=== PATIENT | male | born 1970 | race Caucasian/White ===

== ENCOUNTER 2021-10-11 00:22 | Day surgery (SDC) | payer BC, SELFPAY ==
[2021-09-26 14:19] VITALS: BMI 27.9
--- NOTE | 2021-10-11 07:00 | SUR.PREOP ---
Pt. presents with nausea and states that he has been vomiting since 0 after taking his next round of Suprep. States he called Dr. Avilez and was told to stop taking his prep medication. Continued to have at least 5-6 copious light go stools. Dr. Justice notified and informed of pt. status, that pt. did not finish his prep due to vomiting, has had many liquid light go stools. Instructed to continue with colonoscopy this am. No further orders noted.
[2021-10-11 07:02] LABS: Glucose Point of Care 124 mg/dl (65-105)
[2021-10-11 07:05] VITALS: BP 140/92; PULSE 87; RESP 17; TEMP 36.4; O2SAT 99; BMI 27.3
[2021-10-11] MEDS: LACTATED RINGERS 1,000 ML 150 ML IV CONT (07:11)
[2021-10-11] MEDS: ONDANSETRON INJ 4 MG/2 ML VIAL IV PUSH (07:21)
--- NOTE | 2021-10-11 07:46 | PM.HPGS ---
History of Present Illness History of Present Illness Consent: Risks, benefits, and alternatives have been discussed and questions answered. Patient agrees to proceed with procedure. Chief complaint: neoplasm screening Narrative: Elliot Matos is a 51 year old male here for first screening colonoscopy Review of Systems Constitutional: Constitutional: Denies headache(s) and Denies weakness Eyes: Eyes: Denies blurry vision ENT: Reports Normal hearing present, Denies headache(s) and Denies neck pain Cardiovascular: Cardiovascular: Denies chest pain and Denies dyspnea Respiratory: Respiratory: Denies dyspnea Gastrointestinal: Gastrointestinal: Reports no additional gastrointestinal complaints Genitourinary: Genitourinary: Denies dysuria Musculoskeletal: Musculoskeletal: Denies neck pain Integumentary/Breasts: Skin/Breast: Denies dry skin Neurologic: Reports Normal hearing present, Denies headache(s) and Denies weakness Psychiatric: Psychiatric: Denies anxiety Endocrine: Endocrine: Denies change in body appearance Hematologic/Lymphatic: Hematologic/Lymphatic: Denies easy bleeding Allergic/Immunologic: Allergic/Immunologic: Denies urticaria [facility] Past Medical History Medical History (Updated 09/09/21 @ 08:36 by Maia Colón NP) Addisons disease Diabetes mellitus Hypothyroidism (acquired) Shingles Surgical History Surgical History H/O right knee surgery Family History Family History Mother Family history of diabetes mellitus in first degree relative Hypertension Sibling Family history of diabetes mellitus in first degree relative Father Family history of dementia Social History Social History Social History: Smoking status: Never smoker Second hand tobacco smoke exposure: No Alcohol intake: never Alcohol use details: 3/mo Substance use: never Substance use type: does not use Living arrangements: with family Gender identity (if verbalized by the patient): Male Sexual Orientation (if Verbalized by the Patient): Straight or Heterosexual Spiritual care concerns: No Meds Home Medications and Allergies Home Medications Medication Instructions Recorded Confirmed Type blood sugar diagnostic (OneTouch #100 ea 01/13/20 09/09/21 Rx Ultra Blue Test Strip) lancets 33 gauge (OneTouch Delica #100 ea 01/13/20 09/09/21 Rx Lancets) fluticasone propionate 50 1 spray intranasal Q12H #18.2 mL 08/31/20 10/11/21 Rx mcg/actuation nasal spray,suspension azelastine 137 mcg (0.1 %) nasal 1 spray intranasal Q12H #30 mL 11/22/20 10/11/21 Rx spray aerosol flash glucose scanning reader #2 ea 03/12/21 09/09/21 Rx (FreeStyle Arianna 14 Day [place]) flash glucose sensor (FreeStyle #1 ea 08/04/21 09/09/21 Rx Arianna 14 Day Sensor kit) fludrocortisone 0.1 mg tablet 0.1 mg PO DAILY #90 tabs 08/22/21 10/11/21 Rx levothyroxine 100 mcg tablet 100 mcg PO DAILY #90 tabs 08/22/21 10/11/21 Rx prednisone 5 mg tablet See Rx Instructions .Route 09/09/21 10/11/21 Rx .COMPLEX #60 tabs propranolol 60 mg capsule,24 60 mg PO DAILY #90 caps 09/09/21 09/26/21 Rx hr,extended release rosuvastatin 10 mg tablet See Rx Instructions .Route 09/09/21 09/26/21 Rx .COMPLEX #90 tabs empagliflozin 10 mg tablet 10 mg PO DAILY #90 tabs 09/11/21 10/11/21 Rx (Jardiance) glimepiride 1 mg tablet (Amaryl) 1 mg PO QAM #90 tabs 09/11/21 10/11/21 Rx sodium sul 1.479 gram-potas ch See Rx Instructions PO PER PKG DIR 09/23/21 09/26/21 Rx 0.188 gram-magnes sul 0.225 gram #24 tabs tablet (Sutab) amitriptyline 25 mg tablet 25 mg PO DAILY #90 tabs 09/24/21 10/11/21 Rx Allergies Allergy/AdvReac Type Severity Reaction Status Date / Time tizanidine Allergy Mild Dizziness Verified 10/11/21 07:03 meperidine Allergy Unknow
--- NOTE | 2021-10-11 07:50 | WPDANESEPPF ---
Anes - Initial Pre Proc Eval Procedure: Operation Date: 10/11/21 08:00 Proposed Procedures p Screening Colonoscopy - Juan Rome MD Date/Time: 10/11/21 07:50 Surgeon: Juan Rome MD Pre Op Diagnosis: neoplasm screening Patient Data Age: 51 Gender: M Height: 1.83 m Weight: 91.5 kg Last Vital Signs Temp 97.6 F 10/11/21 07:05 Pulse 87 10/11/21 07:05 Resp 17 10/11/21 07:05 BP 140/92 H 10/11/21 07:05 Pulse Ox 99 10/11/21 07:05 O2 Del Method Room Air 10/11/21 07:05 Allergies Allergy/AdvReac Type Severity Reaction Status Date / Time tizanidine Allergy Mild Dizziness Verified 10/11/21 07:03 meperidine Allergy Unknown Dizziness Verified 10/11/21 07:03 Home Medications Medication Instructions Recorded Confirmed Type blood sugar diagnostic (OneTouch #100 ea 01/13/20 09/09/21 Rx Ultra Blue Test Strip) lancets 33 gauge (OneTouch Delica #100 ea 01/13/20 09/09/21 Rx Lancets) fluticasone propionate 50 1 spray intranasal Q12H #18.2 mL 08/31/20 10/11/21 Rx mcg/actuation nasal spray,suspension azelastine 137 mcg (0.1 %) nasal 1 spray intranasal Q12H #30 mL 11/22/20 10/11/21 Rx spray aerosol flash glucose scanning reader #2 ea 03/12/21 09/09/21 Rx (FreeStyle Arianna 14 Day [place]) flash glucose sensor (FreeStyle #1 ea 08/04/21 09/09/21 Rx Arianna 14 Day Sensor kit) fludrocortisone 0.1 mg tablet 0.1 mg PO DAILY #90 tabs 08/22/21 10/11/21 Rx levothyroxine 100 mcg tablet 100 mcg PO DAILY #90 tabs 08/22/21 10/11/21 Rx prednisone 5 mg tablet See Rx Instructions .Route 09/09/21 10/11/21 Rx .COMPLEX #60 tabs propranolol 60 mg capsule,24 60 mg PO DAILY #90 caps 09/09/21 09/26/21 Rx hr,extended release rosuvastatin 10 mg tablet See Rx Instructions .Route 09/09/21 09/26/21 Rx .COMPLEX #90 tabs empagliflozin 10 mg tablet 10 mg PO DAILY #90 tabs 09/11/21 10/11/21 Rx (Jardiance) glimepiride 1 mg tablet (Amaryl) 1 mg PO QAM #90 tabs 09/11/21 10/11/21 Rx sodium sul 1.479 gram-potas ch See Rx Instructions PO PER PKG DIR 09/23/21 09/26/21 Rx 0.188 gram-magnes sul 0.225 gram #24 tabs tablet (Sutab) amitriptyline 25 mg tablet 25 mg PO DAILY #90 tabs 09/24/21 10/11/21 Rx Laboratory Tests 10/11/21 06:58 POC Capillary Glucose 124 mg/dl H mg/dl (65-105) Patient hx anesthesia problems: none Family hx anesthesia problems: none Results Review: All pre-operative results and documents have been reviewed as part of the pre-operative evaluation. [facility] Past Medical History Medical History (Updated 09/09/21 @ 08:36 by Maia Colón NP) Addisons disease Diabetes mellitus Hypothyroidism (acquired) Shingles Surgical History Surgical History H/O right knee surgery Family History Family History Mother Family history of diabetes mellitus in first degree relative Hypertension Sibling Family history of diabetes mellitus in first degree relative Father Family history of dementia Social History Social History Social History: Smoking status: Never smoker Second hand tobacco smoke exposure: No Alcohol intake: never Alcohol use details: 3/mo Substance use: never Substance use type: does not use Living arrangements: with family Gender identity (if verbalized by the patient): Male Sexual Orientation (if Verbalized by the Patient): Straight or Heterosexual Spiritual care concerns: No Anes - Eval Final PreProcedure Day of Procedure 10/11/21 07:50 Patient weight: normal Heart: regular rate and rhythm Lungs: clear to auscultation Airway: Mallampati scale class II Neurological: alert and oriented Last oral intake: >/= 8 hours ASA classification: III Emergent: no Anesthetic plan: proceed Anesthesia type and monitoring:
[2021-10-11 08:14] VITALS: BP 107/69; PULSE 82; RESP 13; O2SAT 98
[2021-10-11 08:24] VITALS: BP 104/74; PULSE 79; RESP 17; O2SAT 98
[2021-10-11 08:34] VITALS: BP 139/96; PULSE 84; RESP 15; O2SAT 98
== END 2021-10-11 08:43 | disposition home or self-care (01) ==
PROVIDERS: PCP Family Medicine; Visit Provider Internal Medicine Gastroenterology
PROC: 0DJD8ZZ Inspection of Lower Intestinal Tract, Via Natural or Artificial Opening Endoscopic (ICD-10-PCS; CPT 45378; principal; 2021-10-11 08:00)
DX: Z12.11 Encounter for screening for malignant neoplasm of colon (principal); D12.0 Benign neoplasm of cecum; K64.8 Other hemorrhoids; E03.9 Hypothyroidism, unspecified; E11.9 Type 2 diabetes mellitus without complications; E27.1 Primary adrenocortical insufficiency
CPT/HCPCS: 45385; 82948; 88305; J2405; J2704; J7120

== ENCOUNTER 2022-09-10 09:42 | Outpatient (CLI) | payer BC, SELFPAY ==
--- NOTE | ~2022-09-10 | XR_ITS ---
EXAMINATION: XR chest 2V 09/10/2022 10:15 INDICATION: Cough with chest pain PROCEDURE: 2 view chest COMPARISON: 09/17/2014 FINDINGS: The lungs are clear. The cardiomediastinal silhouette is within normal limits. There are no pleural effusions. There is no pneumothorax suspected. There are chronic, likely posttraumatic, changes of the left acromioclavicular joint. IMPRESSION: 1: NO ACUTE CARDIOPULMONARY DISEASE. Reviewed, dictated and finalized at location B.
== END 2022-09-10 09:43 | disposition home or self-care (01) ==
PROVIDERS: PCP Family Medicine; Visit Provider Physician Assistant
DX: R05.9 Cough, unspecified (principal)
CPT/HCPCS: 71046

== ENCOUNTER 2023-03-13 14:48 | Outpatient (CLI) | payer BC, SELFPAY ==
[2023-03-13 15:11] LABS: Basophils Absolute Auto 0.1 K/mm3 (0.0-0.1); Basophils Percent Auto 0.2 % (0.2-1.2); Hematocrit 47.1 % (42.0-52.0); Hemoglobin 15.6 g/dL (14.0-18.0); Immature Granulocyte Absolute 0.19 K/mm3 (0.00-0.031); Immature Granulocyte Percent A 0.9 % (0-0.5); Lymphocytes Absolute Auto 2.36 K/mm3 (0.9-3.2); Lymphocytes Percent Auto 11.2 % (18.3-44.2); Mean Corpuscular HGB Conc 33.1 g/dl (32-36); Mean Corpuscular Hemoglobin 29.7 pg (26-34); Mean Corpuscular Volume 89.7 fl (80-100); Mean Platelet Volume 10.8 fl (7.4-10.4); Monocytes Absolute Auto 1.6 K/mm3 (0.1-0.6); Monocytes Percent Auto 7.4 % (2.6-8.5); Neutrophils Percent Auto 80.3 % (45.5-73.1); Platelet Count Result 307 k/mm3 (150-375); Red Blood Count 5.25 M/mm3 (4.6-6.20); Red Cell Distribution Width 12.9 % (11.5-14.5); White Blood Count 21.1 K/mm3 (4.5-10.0)
[2023-03-13 15:23] LABS: Alanine Aminotransferase 29 U/L (6-50); Albumin Level 5.1 g/dL (3.5-5.1); Alkaline Phosphatase 74 U/L (38-126); Anion Gap 14 mmol/L (8-16); Aspartate Amino Transferase 24 U/L (17-59); Bilirubin,Total 0.6 mg/dL (0.2-1.3); Blood Urea Nitrogen 21 mg/dL (9-20); Calcium 9.7 mg/dL (8.4-10.2); Carbon Dioxide 25 mmol/L (22-30); Chloride 104 mmol/L (98-107); Estimated Glomerular Filt Rate > 60; Glucose 76 mg/dL (65-110); Potassium 4.1 mmol/L (3.4-5.0); Sodium 143 mmol/L (137-145)
[2023-03-13 15:38] LABS: Hemoglobin A1C 7.1 % (<5.7)
[2023-03-13 18:20] LABS: Thyroid Stimulating Hormone Reflex 0.132 uIU/mL (0.465-4.68)
[2023-03-13 19:02] LABS: Free T4 Free Thyroxine Reflex 1.31 ng/dL (0.78-2.19)
[2023-03-13 20:15] LABS: Total Triiodothyronine (T3) 1.36 NG/ML (0.97-1.69)
== END 2023-03-13 14:49 | disposition home or self-care (01) ==
PROVIDERS: PCP Family Medicine; Visit Provider Family Medicine
DX: E03.9 Hypothyroidism, unspecified (principal); E11.9 Type 2 diabetes mellitus without complications; E78.5 Hyperlipidemia, unspecified; E83.52 Hypercalcemia; E27.1 Primary adrenocortical insufficiency; Z96.651 Presence of right artificial knee joint
CPT/HCPCS: 36415; 80053; 83036; 84439; 84443; 84480; 85025

== ENCOUNTER 2023-03-17 10:58 | Outpatient (CLI) | payer BC, SELFPAY ==
[2023-03-17 11:16] LABS: Basophils Absolute Auto 0.1 K/mm3 (0.0-0.1); Basophils Percent Auto 0.5 % (0.2-1.2); Eosinophils Absolute Auto 0.1 K/mm3 (0-0.3); Eosinophils Percent Auto 0.5 % (0-4.4); Hematocrit 51.4 % (42.0-52.0); Hemoglobin 17.8 g/dL (14.0-18.0); Immature Granulocyte Absolute 0.16 K/mm3 (0.00-0.031); Immature Granulocyte Percent A 0.9 % (0-0.5); Lymphocytes Absolute Auto 2.36 K/mm3 (0.9-3.2); Lymphocytes Percent Auto 13.3 % (18.3-44.2); Mean Corpuscular HGB Conc 34.6 g/dl (32-36); Mean Corpuscular Hemoglobin 30.1 pg (26-34); Mean Platelet Volume 10.7 fl (7.4-10.4); Monocytes Absolute Auto 1.2 K/mm3 (0.1-0.6); Monocytes Percent Auto 6.8 % (2.6-8.5); Neutrophils Absolute Auto 13.9 K/mm3 (1.3-6.7); Platelet Count Result 323 k/mm3 (150-375); Red Blood Count 5.91 M/mm3 (4.6-6.20); Red Cell Distribution Width 12.5 % (11.5-14.5); White Blood Count 17.8 K/mm3 (4.5-10.0)
[2023-03-17 16:48] LABS: Alanine Aminotransferase 37 U/L (6-50); Albumin Level 5.1 g/dL (3.5-5.1); Alkaline Phosphatase 86 U/L (38-126); Anion Gap 13 mmol/L (8-16); Aspartate Amino Transferase 23 U/L (17-59); Blood Urea Nitrogen 23 mg/dL (9-20); CRP 0.6 mg/dL (<1.0); Calcium 10.4 mg/dL (8.4-10.2); Carbon Dioxide 27 mmol/L (22-30); Chloride 97 mmol/L (98-107); Estimated Glomerular Filt Rate > 60; Glucose 138 mg/dL (65-110); Sodium 137 mmol/L (137-145)
[2023-03-17 16:55] LABS: Immunoglobulin A 230 mg/dL (70-400); Immunoglobulin M 102 mg/dL (40-230)
[2023-03-17 16:56] LABS: Erythrocyte Sedimentation Rate 5 mm/hr (0-20)
[2023-03-17 16:58] LABS: Immunoglobulin G 1263 mg/dL (700-1600)
== END 2023-03-17 10:59 | disposition home or self-care (01) ==
LOC: ANHLAB 11:00
PROVIDERS: PCP Family Medicine; Visit Provider Internal Medicine Hematology & Oncology
DX: D83.9 Common variable immunodeficiency, unspecified (principal)
CPT/HCPCS: 36415; 80053; 82784; 85025; 85652; 86140; 88184

== ENCOUNTER 2023-04-03 17:23 | Outpatient (CLI) | payer BC, SELFPAY ==
[2023-04-07 14:03] LABS: BCR/abl Prior Result Not Given
[2023-04-07 14:52] LABS: BCR/abl P190 Not Detected; BCR/abl P210 Not Detected
[2023-04-07 14:53] LABS: BCR/abl P190 Chg YES; BCR/abl P210 Chg YES
== END 2023-04-03 17:24 | disposition home or self-care (01) ==
LOC: ANHLAB 17:26
PROVIDERS: PCP Family Medicine; Visit Provider Internal Medicine Hematology & Oncology
DX: D72.829 Elevated white blood cell count, unspecified (principal)
CPT/HCPCS: 36415; 81206; 81207

== ENCOUNTER 2023-04-14 12:31 | Outpatient (CLI) | payer BC, SELFPAY ==
--- NOTE | ~2023-04-14 | CT_ITS ---
EXAMINATION: CT chest abdomen pelvis w con DATE: 04/14/2023 13:04 INDICATION: Non-Hodgkin lymphoma TECHNIQUE: Transaxial computed tomographic images of the chest, abdomen, and pelvis were obtained aft er the administration of 100 cc of Omnipaque 350 intravenous contrast. The dose-length product (DLP) was 830.10 mGy-cm. Automated exposure control and iterative reconstruction technique were employed. COMPARISON: 08/21/2014 FINDINGS: CHEST CT: There is mild atelectasis of the lungs. No pleural effusion or pneumothorax. No pathologically enlarg ed thoracic lymph nodes are identified. The heart size is normal. Mild bilateral gynecomastia is note d. There is mild thoracic spondylosis. ABDOMEN/PELVIS CT: There is a small sliding hiatal hernia. Cysts of the liver measure up to 2.1 cm in the right hepatic lobe. The spleen, pancreas, gallbladder, and adrenal glands are normal. Cysts of the kidneys measure up to 6.6 cm on the right. No pathologically enlarged abdominal or pelvic lymph nodes are identified. No free intraperitoneal gas or evidence of bowel obstruction. The appendix is normal. There is sever e lumbar spondylosis at L5-S1. IMPRESSION: 1. No lymphadenopathy of the chest, abdomen, or pelvis. Reviewed, dictated and finalized at location L. K COUNTER
== END 2023-04-14 12:32 | disposition home or self-care (01) ==
PROVIDERS: PCP Family Medicine; Visit Provider Internal Medicine Hematology & Oncology
DX: C85.90 Non-Hodgkin lymphoma, unspecified, unspecified site (principal)
CPT/HCPCS: 71260; 74177; Q9967

== ENCOUNTER 2023-04-29 01:13 | Day surgery (SDC) | payer BC, SELFPAY ==
[2023-04-28 13:45] VITALS: BMI 26.7
--- NOTE | ~2023-04-29 | BM_ITS ---
EXAMINATION: CCL bone marrow asp w bx diag ORDER COMPLETED DATE: 04/29/2023 11:19 INDICATION: Leukocytosis TECHNIQUE: A time-out was performed to verify the patient's name, date of , and procedure to b e performed. The procedure including the risks, benefits, and alternatives was discussed with the pat ient. Risks discussed included bleeding and infection. The patient understood the risks and agreed to proceed. The skin overlying the right posterior iliac spine was prepped and draped in usual sterile fashion. Anesthetic was administered with 1% lidocaine subcutaneously. Systemic analgesia was provide d with 50 mcg fentanyl IV. An 11 gauge needle was inserted into the ilium with fluoroscopic guidance. Bone marrow was aspirated. An 8 gauge needle was then inserted into the ilium with fluoroscopic guid ance. A core bone marrow biopsy was obtained. There were no immediate complications. Fluoroscopy expo sure time was 0.1 minutes. The total number of images was 23. FINDINGS: Real-time fluoroscopy demonstrates a marker overlying the right posterior iliac spine. IMPRESSION: 1. Successful fluoro-guided bone marrow aspiration. 2. Successful fluoro-guided bone marrow core biopsy. Reviewed, dictated and finalized at location A. [facility]
[2023-04-29 07:38] VITALS: BP 133/79; PULSE 73; RESP 16; TEMP 36.3; O2SAT 96; BMI 27.2
[2023-04-29 07:54] LABS: Basophils Absolute Auto 0.1 K/mm3 (0.0-0.1); Basophils Percent Auto 0.5 % (0.2-1.2); Eosinophils Absolute Auto 0.3 K/mm3 (0-0.3); Eosinophils Percent Auto 2.5 % (0-4.4); Hematocrit 48.8 % (42.0-52.0); Hemoglobin 16.4 g/dL (14.0-18.0); Immature Granulocyte Absolute 0.04 K/mm3 (0.00-0.031); Immature Granulocyte Percent A 0.4 % (0-0.5); Lymphocytes Absolute Auto 2.71 K/mm3 (0.9-3.2); Lymphocytes Percent Auto 27.5 % (18.3-44.2); Mean Corpuscular HGB Conc 33.6 g/dl (32-36); Mean Corpuscular Hemoglobin 29.9 pg (26-34); Mean Corpuscular Volume 89.1 fl (80-100); Mean Platelet Volume 11.5 fl (7.4-10.4); Monocytes Percent Auto 9.7 % (2.6-8.5); Neutrophils Absolute Auto 5.9 K/mm3 (1.3-6.7); Neutrophils Percent Auto 59.4 % (45.5-73.1); Platelet Count Result 255 k/mm3 (150-375); Red Blood Count 5.48 M/mm3 (4.6-6.20); Red Cell Distribution Width 12.7 % (11.5-14.5); White Blood Count 9.9 K/mm3 (4.5-10.0)
[2023-04-29 08:05] LABS: INR 0.9; Prothrombin Time 12.7 Seconds (11.1-14.7)
--- NOTE | 2023-04-29 08:55 | WPDMODSED ---
Moderate Sedation Note-Pt Data Patient Data Diagnosis: leukocytosis Present Complaint: leukocytosis, fevers Procedure to be performed/Plan: bone marrow biopsy Allergies Allergy/AdvReac Type Severity Reaction Status Date / Time metformin [From ] AdvReac Intermediate Diarrhea Verified 04/29/23 07:37 sitagliptin [From ] AdvReac Intermediate Diarrhea Verified 04/29/23 07:37 tizanidine AdvReac Mild Dizziness Verified 04/29/23 07:37 meperidine AdvReac Unknown Dizziness Verified 04/29/23 07:37 Home Medications Medication Instructions Recorded Confirmed Type lancets 33 gauge (OneTouch Delica #100 ea 01/13/20 03/13/23 Rx Lancets) pen needle, diabetic 32 gauge x #100 ea 04/07/22 03/13/23 Rx 1/6 (NovoFine Plus) albuterol sulfate 90 mcg/actuation 1 inh inhalation Q4H PRN shortness 08/14/22 04/28/23 Rx aerosol inhaler of breath or wheezing #6.7 grams blood sugar diagnostic #100 ea 11/10/22 03/13/23 Rx insulin degludec 200 unit/mL (3 16 unit (0.08 mL) subcut DAILY #9 03/13/23 04/28/23 Rx mL) subcutaneous pen (Tresiba mL FlexTouch U-200 insulin) flash glucose sensor (FreeStyle #2 kits 03/15/23 03/15/23 Rx Arianna 14 Day Sensor kit) cholecalciferol (vitamin D3) 50 50 mcg PO DAILY #90 caps 04/26/23 04/28/23 Rx mcg (2,000 unit) capsule amitriptyline 25 mg tablet 25 mg PO DAILY 04/28/23 04/28/23 History empagliflozin 10 mg tablet 10 mg PO DAILY 04/28/23 04/28/23 History (Jardiance) fludrocortisone 0.1 mg tablet 0.1 mg PO DAILY 04/28/23 04/28/23 History glimepiride 2 mg tablet 2 mg PO QAM #90 tabs 04/28/23 Rx levothyroxine 100 mcg tablet 100 mcg PO DAILY 04/28/23 04/28/23 History prednisone 5 mg tablet 5 mg PO DAILY 04/28/23 04/28/23 History propranolol 60 mg capsule,24 60 mg PO DAILY 04/28/23 04/28/23 History hr,extended release rosuvastatin 10 mg tablet 10 mg PO DAILY 04/28/23 04/28/23 History Sedation/Anesthesia: No previous sedation/anesthesia problems (including family history). [facility] Past Medical History Medical History Acute bronchitis Acute maxillary sinusitis Acute otitis externa Acute sinusitis Addisons disease AOM (acute otitis media) Diabetes mellitus Diabetes mellitus due to therapeutic use of corticosteroid Dysfunction of both eustachian tubes Heat exhaustion Hypothyroidism (acquired) Hypothyroidism, unspecified Insomnia Migraine NEC/not intrcbl Mixed hyperlipidemia Primary adrenocortical insufficiency Shingles Varicella zoster Surgical History Surgical History H/O right knee surgery Family History Family History Mother Family history of diabetes mellitus in first degree relative Hypertension Sibling Family history of diabetes mellitus in first degree relative Father Family history of dementia Social History Social History (Updated 03/13/23 @ 13:52 by Maia Ellis) Social History: Smoking status: Never smoker Second hand tobacco smoke exposure: No Alcohol intake: never Substance use: never Substance use type: does not use Lack of Transportation: No Lack of Food: Never True Current Housing: I Have Housing Concerned About Future Housing: No Difficulty Paying Gas/Electric Bills: No Difficulty Paying for Meds: No Currently Unemployed: No Education: Decline to Answer Difficulty w/ Childcare or Family Care: No Living arrangements: with family Occupation/Education: occupation 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
[2023-04-29 09:30] VITALS: BP 134/84; PULSE 66; RESP 13; O2SAT 95
[2023-04-29 09:45] VITALS: BP 123/79; PULSE 65; RESP 12; O2SAT 94
[2023-04-29 10:00] VITALS: BP 119/75; PULSE 66; RESP 14; O2SAT 93
[2023-04-29 10:15] VITALS: BP 119/79; PULSE 68; RESP 15; O2SAT 92
== END 2023-04-29 10:25 | disposition home or self-care (01) ==
PROVIDERS: PCP Family Medicine; Referring Provider Internal Medicine Hematology & Oncology; Visit Provider Radiology Diagnostic Radiology
DX: D72.829 Elevated white blood cell count, unspecified (principal); E78.2 Mixed hyperlipidemia; E03.9 Hypothyroidism, unspecified; E11.9 Type 2 diabetes mellitus without complications; G47.00 Insomnia, unspecified; E27.1 Primary adrenocortical insufficiency; Z79.51 Long term (current) use of inhaled steroids; Z79.4 Long term (current) use of insulin; Z79.84 Long term (current) use of oral hypoglycemic drugs; Z79.85 Long-term (current) use of injectable non-insulin antidiabetic drugs
CPT/HCPCS: 36415; 38222; 85025; 85610; 88184; 88185; 88305; 88311; 88313; J1642; J2250; J3010; J7040

== ENCOUNTER 2024-12-04 08:15 | Emergency (ER) | payer BC, SELFPAY ==
--- NOTE | 2024-12-04 08:19 | ED_ITS ---
HPI - General Adult General Chief complaint: Upper Respiratory Infection Stated complaint: Sinus Time Seen by Provider: 12/04/24 08:19 Source: patient Mode of arrival: ambulatory Limitations: no limitations History of Present Illness HPI narrative: 54-year-old male patient presents to the [facility] with complaints of sinus pressure for the past 2 days. Patient denies any fevers body aches or chills. Denies any cough or sore throat. Patient states he takes Zyrtec daily and since symptoms started he has has been taking the Sudafed and a nasal saline spray. Patient states he has been taking ibuprofen and Tylenol at times for pain. Patient states he does have history of [place]'s disease and does get sinus infections often. Related Data Home Medications ?Medication ?Instructions ?Recorded ?Confirmed ?Last Taken ?Type empagliflozin 10 mg tablet 10 mg PO DAILY 04/28/23 07/15/24 04/28/23 History (Jardiance) levothyroxine 100 mcg tablet 100 mcg PO DAILY 04/28/23 07/15/24 04/29/23 History fludrocortisone 0.1 mg tablet 0.1 mg PO BID 07/15/24 07/15/24 Unknown History glimepiride 2 mg tablet 2 mg PO BID 07/15/24 07/15/24 Unknown History hydrocortisone 10 mg tablet See Rx Instructions PO BID 07/15/24 07/15/24 Unknown History rosuvastatin 10 mg tablet 10 mg PO DAILY 07/15/24 07/15/24 Unknown History Allergies Allergy/AdvReac Type Severity Reaction Status Date / Time lisinopril AdvReac Severe Dizziness Verified 12/04/24 08:29 metformin (From [place]) AdvReac Intermediate Diarrhea Verified 12/04/24 08:29 sitagliptin (From [place]) AdvReac Intermediate Diarrhea Verified 12/04/24 08:29 meperidine AdvReac Mild Dizziness Verified 12/04/24 08:29 tizanidine AdvReac Mild Dizziness Verified 12/04/24 08:29 Review of Systems Review of Systems: CONSTITUTIONAL: Denies fever, chills, or sweats. EYES: Denies visual changes, redness, or discharge. ENT: Denies rhinorrhea, positive congestion, denies sore throat, or otalgia. Positive sinus pressure CARDIOVASCULAR: Denies chest pain, palpitations, or edema. RESPIRATORY: Denies cough or dyspnea. GASTROINTESTINAL: Denies abdominal pain, nausea, vomiting, or diarrhea. GENITOURINARY: Denies dysuria or hematuria. SKIN: Denies rash or itching. MUSCULOSKELETAL: Denies back pain, joint pain, or myalgia. NEUROLOGIC: Denies headache, numbness, or weakness. PSYCHIATRIC: Denies anxiety or depression. 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 Acute maxillary sinusitis Acute bronchitis Acute otitis externa AOM (acute otitis media) Acute sinusitis Hypothyroidism (acquired) Shingles Diabetes mellitus Addisons disease Surgical History Surgical History H/O right knee surgery Family History Family History Mother Family history of diabetes mellitus in first degree relative Hypertension Sibling Family history of diabetes mellitus in first degree relative Father Family history of dementia Social History Social History Social History: Smoking status: Never smoker Second hand tobacco smoke exposure: No Alcohol intake: never Substance use: never Substance use type: does not use Lack of Transportation: No Lack of Food: Never True Current Housing: I Have Housing Concerned About Future Housing: No Difficulty Paying Gas/Electric Bills: No Difficulty Paying for Meds: No Currently Unemployed: No Education: Decline to Answer Difficulty w/ Childcare or Family Care: No Living arrangements: with family Occupation/Education: occupation 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 There is no relevant family history pertinent to the presenting complaint. Exam Narrative: GENERAL: Well-appearing, well-nourished, and in no acute distress. HEAD: Normocephalic, atraumatic. EYES: PERRLA and EOMI. ENT: Nares clear, no rhinorrhea or epistaxis. Mucous membranes moist. Posterior pharynx with no erythema, tonsillar enlargement, exudates or lesions present. Bilateral TMs are clear no erythema or foreign body the canal. NECK: Supple. Mild tender lymphadenopathy to the left parotis and tonsillar lymph node CHEST: Clear to auscultation. No respiratory distress. HEART: Regular rate and rhythm. No murmur heard. Normal peripheral pulses. ABDOMEN: Soft, nontender, nondistended, normal active bowel sounds. EXTREMITIES: Normal range of motion. No edema. SKIN: Warm, dry, no rash. NEURO: No focal deficits. Alert and oriented x3. Course Course Level of Care: Express Care Visit Vital Signs Vital signs: Vital Signs Temperature 36.4 C 12/04/24 08:20 Pulse Rate 62 12/04/24 08:20 Respiratory Rate 18 12/04/24 08:20 Blood Pressure 133/75 12/04/24 08:20 Pulse Oximetry 98 12/04/24 08:20 Oxygen Delivery Room Air 12/04/24 08:20 Temperature 36.4 C 12/04/24 08:20 Pulse Rate 62 12/04/24 08:20 Respiratory Rate 18 12/04/24 08:20 Blood Pressure 133/75 12/04/24 08:20 Pulse Oximetry 98 12/04/24 08:20 Oxygen Delivery Room Air 12/04/24 08:20 Vital signs reviewed. Medical Decision Making MDM Narrative Medical decision making narrative: Discussed with patient that I do not see any evidence of a bacterial infection at this time therefore it is not appropriate to provide antibiotics at this time since he has only had symptoms for about 2 days. Discussed with patient that he can use an [id number]-fzyjlso Flonase to help with the sinus pressure as well as take Tylenol and ibuprofen to help with the pain. Highly recommend that patient decrease his dairy as this is directly associated with inflammation and sinus congestion. Discussed with patient that he can also use a sinus rinse something such as a Neti pot clean out the sinuses to see if this helps reduce the pressure. Discussed with patient to continue taking his Zyrtec, Sudafed for his symptoms and this is most likely viral and should resolve on its own. Differential Diagnosis Differential Diagnosis: Differential diagnosis: Allergic rhinitis, chronic sinusitis, tonsillitis, acute sinusitis, infectious mononucleosis, seasonal influenza, pertussis, diphtheria, meningococcal disease, viral syndrome, viral bronchitis, RSV, COVID- 19 Vital Signs Vital Signs: Vital Signs Temperature 36.4 C 12/04/24 08:20 Pulse Rate 62 12/04/24 08:20 Respiratory Rate 18 12/04/24 08:20 Blood Pressure 133/75 12/04/24 08:20 Pulse Oximetry 98 12/04/24 08:20 Oxygen Delivery Room Air 12/04/24 08:20 Temperature 36.4 C 12/04/24 08:20 Pulse Rate 62 12/04/24 08:20 Respiratory Rate 18 12/04/24 08:20 Blood Pressure 133/75 12/04/24 08:20 Pulse Oximetry 98 12/04/24 08:20 Oxygen Delivery Room Air 12/04/24 08:20 Vital signs reviewed. Critical Care Time Critical Care Time Critical Care Time: No Discharge Plan Discharge Clinical Impression: Acute viral sinusitis Patient Disposition: Home Condition: Stable Instructions: Antibiotic Form, Sinusitis (ED), How to Use Nasal Central (ED) Additional Instructions: Viral illness may last between 7-12days; antibiotic is NOT recommended at this time. Recommend antihistamine such as Benadryl at night time and Claritin/Zyrtec/Rosita during the day Please get some ewzm-nin-ndzbptr Flonase and use the Flonase 2 sprays in each nostril in the morning and 2 sprays in each nostril at night until your sinus pressure has resolved Also recommend getting an gwoz-xwl-wmxtwwo Neti pot and clean out the sinuses which could help with your symptoms as well. Also, recommend symptomatic treatment includes: rest, fluids, and increase humidity of the air at home. Recommend Acetaminophen or nonsteroidal anti-inflammatory agents (NSAIDs) as di rected in the bottle to reduce fever and/pain/headache. Avoid smoking/second-hand smoke. Limit visits to areas with large crowds. Please schedule a follow-up visit with your personal physician for further evaluation and treatment within 3-5days. Including recheck and discussion of your blood pressure. If your symptoms persist, change or worsen significantly before you can contact your personal physician then please, without delay, go to the emergency department for further evaluation. Patient Language: [place]an Prescriptions: No Action (DME) [employer] 14 Day Sensor Kit See Rx Instructions .ROUTE .COMPLEX Qty: 2 2RF Dose Instruction: DIRECTED Rx Instructions: DIRECTED rosuvastatin 10 mg tablet 10 mg PO DAILY fludrocortisone 0.1 mg tablet 0.1 mg PO BID glimepiride 2 mg tablet 2 mg PO BID Rx Instructions: administer with breakfast hydrocortisone 10 mg tablet See Rx Instructions PO BID Patient Comments: 30mg AM, 10mg PM Rx Instructions: orally twice a day; levothyroxine 100 mcg tablet 100 mcg PO DAILY Jardiance 10 mg tablet 10 mg PO DAILY (DME) lancets [OneTouch Delica Lancets] 33 gauge misc See Rx Instructions .ROUTE .MEDSUPPLY Qty: 100 3RF Rx Instructions: As directed to check glucose BID (DME) NovoFine Plus 32 gauge x 1/6 needle See Rx Instructions .Route Qty: 100 0RF Rx Instructions: use to inject insulin once a day (DME) OneTouch Ultra Blue Test Strip Strip See Rx Instructions .ROUTE .MEDSUPPLY Qty: 100 3RF Rx Instructions: As directed to check glucose BID propranolol 60 mg capsule,extended release 24 hr 60 mg PO DAILY Qty: 90 1RF Follow-up/Referrals: Sina Jefferson MD [Primary Care Provider] - Time of Disposition: 08:37
[2024-12-04 08:20] VITALS: BP 133/75; PULSE 62; RESP 18; TEMP 36.4; O2SAT 98
== END 2024-12-04 08:44 | disposition home or self-care (01) ==
PROVIDERS: Emergency Provider Nurse Practitioner Family; PCP Family Medicine
DX: J01.90 Acute sinusitis, unspecified (principal); E78.2 Mixed hyperlipidemia; E03.9 Hypothyroidism, unspecified; E11.9 Type 2 diabetes mellitus without complications; Z79.84 Long term (current) use of oral hypoglycemic drugs; E27.1 Primary adrenocortical insufficiency
CPT/HCPCS: 99211; G0463